=== PATIENT | male | born 1935 | race Caucasian/White ===

== ENCOUNTER 2017-06-01 12:07 | Outpatient (CLI) | payer MEDICARE, BC ==
[2017-06-01] VITALS (18 sets, daily range): BP systolic 110–136; BP diastolic 67–84
== END 2017-06-01 23:59 | disposition home or self-care (01) ==
LOC: CARD DIAG 12:07
PROVIDERS: ATTEND Physician Assistant
DX: R55 Syncope and collapse (principal)
CPT/HCPCS: 93660

== ENCOUNTER 2018-01-17 10:27 | Inpatient (IN) | payer MEDICARE, BC ==
[2018-01-12 12:06] LABS: BASOPHILS % (AUTO) 0.4 % (0-1); EOSINOPHILS # (AUTO) 0.1 X10'3 (0-0.9); EOSINOPHILS % (AUTO) 2.1 % (0-6); LYMPHOCYTES # (AUTO) 0.8 X10'3 (1.1-4.8); LYMPHOCYTES % (AUTO) 11.9 % (21-51); MEAN CORPUSCULAR HEMOGLOBIN 31.2 PG (27.0-31.0); MEAN CORPUSCULAR HGB CONC 33.4 % (33.0-36.5); MEAN CORPUSCULAR VOLUME 93.4 FL (78-98); MEAN PLATELET VOLUME 7.1 FL (7.4-10.4); MONOCYTES # (AUTO) 0.5 X10'3 (0-0.9); MONOCYTES % (AUTO) 8.1 % (2-12); NEUTROPHILS % (AUTO) 77.5 % (42-75); PRE OP HEMATOCRIT 43.8 % (42.0-52.0); PRE OP HEMOGLOBIN 14.6 g/dL (14.0-17.9); PRE OP PLATELET COUNT 271 X10'3 (140-440); RED BLOOD COUNT 4.69 X10'6 (4.70-6.10); RED CELL DISTRIBUTION WIDTH 13.2 % (11.5-14.5)
[2018-01-12 12:20] LABS: CLARITY,URINE CLEAR (Clear); COLOR,URINE YELLOW (Yellow); GLUCOSE, URINE NEGATIVE (Neg); KETONES,URINE TRACE mg/dl (Neg); LEUKOCYTE ESTERASE ,URINE NEGATIVE (Neg); NITRITES, URINE NEGATIVE (Neg); OCCULT BLOOD,URINE NEGATIVE (Neg); PH,URINE 5.5 (4.8-8.0); PROTEIN,URINE NEGATIVE (Neg)
[2018-01-12 12:22] LABS: UA COLLECTION TYPE VOIDED
[2018-01-12 12:23] LABS: PRE OP PROTIME 10.2 SECONDS (9.0-12.0)
[2018-01-12 12:30] LABS: ALBUMIN 3.9 G/DL (3.4-5.0); ALBUMIN/GLOBULIN RATIO 1.2 (1.1-1.5); ALKALINE PHOSPHATASE 68 IU/L (46-116); BLOOD UREA NITROGEN 19 MG/DL (7-18); BUN/CREATININE RATIO 14.5 (5.4-32.0); CALCIUM 9.2 MG/DL (8.5-10.1); CHLORIDE 101 MMOL/L (99-107); CREATININE 1.31 MG/DL (0.60-1.10); PRE OP ALT 33 U/L (30-65); PRE OP ANION GAP 7 (8-16); PRE OP AST 24 U/L (10-37); PRE OP GLUCOSE 85 MG/DL (70-104); PRE OP POTASSIUM 3.8 MMOL/L (3.4-5.1); PRE OP SODIUM 137 MMOL/L (135-145); TOTAL CARBON DIOXIDE 28.7 MMOL/L (24-32); TOTAL PROTEIN 7.1 G/DL (6.4-8.2); eGFR 53 ML/MIN
[2018-01-17] VITALS (18 sets, daily range): BP systolic 89–126; BP diastolic 37–73
[~2018-01-17] VITALS: Ht 170.2 cm; Wt 81.0 kg
[~2018-01-17 10:27] MED LIST: ATOR20TA66 PO; AZIL1TAB2 PO; LEVO100T PO; NAPR-56 PO; OMEP40CA37 PO; acetaminophen 325mg tablet PO ONE; cefazolin/dext.iso 2gm/50ml 50 ML IV ONE; famotidine 20mg tablet PO ONE; gabapentin 300mg capsule PO ONE; ringers solution, lacted 1,000 ML IV SCH; tranexamic acid inj. 1,500 MG in normal saline 100ml IV soln 85 ML IV ONE
[2018-01-17] MEDS ORDERED: bacitracin inj 150,000 UNIT in sodium chloride irrig. sol 3,000 ML IR ONE (11:00)
[2018-01-17] MEDS ORDERED: tetracaine 1% (10mg/ml) pres. free inj. ONE (11:04)
[2018-01-17] MEDS ORDERED: ROPIVAcaine 0.5% (5mg/ml) 30ml vial ONE ×2 (11:04→11:47)
[2018-01-17] MEDS ORDERED: fentaNYL/PF 50MCG/1 ML 2ML syringe ONE (11:59)
[2018-01-17] MEDS ORDERED: MIDAZolam 5mg/5ml vial ONE (12:00)
[2018-01-17] MEDS ORDERED: hydrALAZINE 20mg/ml inj. IV PRN (12:05)
[2018-01-17] MEDS ORDERED: ondansetron/PF 4mg/2ml inj IV PRN ×3 (12:05→14:50)
[2018-01-17] MEDS ORDERED: ringers solution, lacted 1,000 ML IV SCH (12:05)
[2018-01-17] MEDS ORDERED: fentaNYL/PF 50MCG/1 ML 2ML syringe IV PRN ×2 (12:05)
[2018-01-17] MEDS ORDERED: morphine 4 MG/ML inj SYRINge IV PRN ×2 (12:05)
[2018-01-17] MEDS ORDERED: labetalol 20mg/4ml (5mg/ml) syringe IV PRN (12:05)
[2018-01-17] MEDS ORDERED: diphenhydrAMINE 50 mg/ml inj IV PRN (12:10)
[2018-01-17] MEDS ORDERED: ePHEDrine 50MG/ML INJ. ONE (12:10)
[2018-01-17] MEDS ORDERED: vancomycin 1,000mg inj ONE (13:10)
[2018-01-17] MEDS ORDERED: metoclopramide 5 mg/ml inj ONE (13:10)
[2018-01-17] MEDS ORDERED: acetaminophen 325mg tablet PO PRN (14:50)
[2018-01-17] MEDS ORDERED: HYDROmorphone 1 mg/ml syringe IV PRN (14:50)
[2018-01-17] MEDS ORDERED: diphenhydrAMINE 25mg capsule PO PRN ×2 (14:50)
[2018-01-17] MEDS ORDERED: bisacodyl 10mg suppository rectal RC PRN (14:50)
[2018-01-17] MEDS ORDERED: magnesium hydroxide 30ml (MOM) UD suspension PO PRN (14:50)
[2018-01-17] MEDS: ceFAZolin 1GM/D5W- ADD-VANTAGE 50 ML IV SCH ×2 (16:35→23:54)
[2018-01-17] MEDS: potassium cl 20mEq in 1/2 NS 1,000 ML IV SCH (16:35)
[2018-01-17] MEDS ORDERED: vancomycin/NS 1 GM ADD-VANTAGE 250 ML IV SCH (20:00)
[2018-01-17] MEDS: lactobacillus rhamnosus 10,000 MMU CELLS/CAPSULE PO SCH (20:38)
[2018-01-17] MEDS: ascorbic acid 500mg tablet PO SCH (20:38)
[2018-01-17] MEDS: chlorthalidone 25mg tablet PO SCH (20:39)
[2018-01-17] MEDS: gabapentin 300mg capsule PO SCH (20:39)
[2018-01-17] MEDS ORDERED: AZILSARTAN MED PO SCH (21:00)
[2018-01-17] MEDS ORDERED: CHLORTHALIDONE PO SCH (21:00)
[2018-01-17] MEDS: sennosides 8.6mg tablet PO SCH (21:00)
[2018-01-17] MEDS: losartan 50mg tablet PO SCH (22:30)
[2018-01-18] MEDS: potassium cl 20mEq in 1/2 NS 1,000 ML IV SCH ×4 (00:10→22:47)
[2018-01-18 02:00] VITALS: BP 126/61
[2018-01-18] MEDS: oxyCODONE/APAP 5-325mg tablet PO PRN (04:55)
[2018-01-18 06:23] LABS: BASOPHILS % (AUTO) 0.1 % (0-1); EOSINOPHILS # (AUTO) 0.1 X10'3 (0-0.9); EOSINOPHILS % (AUTO) 1.4 % (0-6); HEMATOCRIT 38.4 % (42.0-52.0); HEMOGLOBIN 12.8 g/dl (14.0-17.9); LYMPHOCYTES # (AUTO) 0.4 X10'3 (1.1-4.8); LYMPHOCYTES % (AUTO) 4.2 % (21-51); MEAN CORPUSCULAR HEMOGLOBIN 31.2 PG (27.0-31.0); MEAN CORPUSCULAR HGB CONC 33.4 % (33.0-36.5); MEAN CORPUSCULAR VOLUME 93.4 FL (78-98); MEAN PLATELET VOLUME 7.3 FL (7.4-10.4); MONOCYTES # (AUTO) 0.6 X10'3 (0-0.9); MONOCYTES % (AUTO) 6.3 % (2-12); NEUTROPHILS # (AUTO) 8.5 X10'3 (1.8-7.7); PLATELET COUNT 238 X10'3 (140-440); RED BLOOD COUNT 4.11 X10'6 (4.70-6.10); RED CELL DISTRIBUTION WIDTH 13.2 % (11.5-14.5); WHITE BLOOD COUNT 9.6 X10'3 (4.5-11.0)
[2018-01-18 06:31] VITALS: BP 135/78
[2018-01-18 06:34] LABS: INR 1.3 INR; PROTHROMBIN TIME 13.1 SECONDS (9.0-12.0)
[2018-01-18 06:42] LABS: ALANINE AMINOTRANSFERASE 25 U/L (12-78); ALBUMIN/GLOBULIN RATIO 0.9 (1.1-1.5); ALKALINE PHOSPHATASE 54 IU/L (46-116); ANION GAP 8 (8-16); ASPARTATE AMINO TRANSFERASE 17 U/L (10-37); BILIRUBIN,TOTAL 0.5 MG/DL (0.1-1.0); BLOOD UREA NITROGEN 17 MG/DL (7-18); BUN/CREATININE RATIO 12.6 (5.4-32.0); CALCIUM 8.5 MG/DL (8.5-10.1); CHLORIDE 99 MMOL/L (99-107); CREATININE 1.35 MG/DL (0.60-1.10); GLUCOSE 134 MG/DL (70-104); POTASSIUM 4.6 MMOL/L (3.5-5.1); SODIUM 134 MMOL/L (135-145); TOTAL CARBON DIOXIDE 26.9 MMOL/L (24-32); TOTAL PROTEIN 6.2 G/DL (6.4-8.2); eGFR 51 ML/MIN
[2018-01-18 06:57] VITALS: BP 120/64
[2018-01-18] MEDS: lactobacillus rhamnosus 10,000 MMU CELLS/CAPSULE PO SCH ×2 (07:38→20:15)
[2018-01-18] MEDS: gabapentin 300mg capsule PO SCH ×3 (07:39→20:17)
[2018-01-18] MEDS: levoTHYROXINE 100mcg tablet PO SCH (07:41)
[2018-01-18] MEDS: multivitamins, therapeutics tablet PO SCH (07:41)
[2018-01-18] MEDS: atorvastatin 20mg tablet PO SCH (07:42)
[2018-01-18] MEDS: ascorbic acid 500mg tablet PO SCH ×2 (07:43→20:16)
[2018-01-18] MEDS ORDERED: warfarin 5mg tablet PO ONE (10:00)
[2018-01-18] MEDS: lactose-reduced food (Ensure High Protein) 237ml bottle PO SCH ×2 (13:00→18:00)
[2018-01-18 14:13] VITALS: BP 105/48
[2018-01-18 18:00] VITALS: BP 129/60
[2018-01-18] MEDS: chlorthalidone 25mg tablet PO SCH (20:16)
[2018-01-18] MEDS: losartan 50mg tablet PO SCH (20:16)
[2018-01-18] MEDS: sennosides 8.6mg tablet PO SCH (20:17)
[2018-01-18 22:00] VITALS: BP 112/47
[2018-01-19 02:00] VITALS: BP 113/49
[2018-01-19] MEDS: oxyCODONE/APAP 5-325mg tablet PO PRN ×4 (04:41→20:37)
[2018-01-19 06:01] LABS: BASOPHILS % (AUTO) 0.3 % (0-1); EOSINOPHILS # (AUTO) 0.2 X10'3 (0-0.9); HEMATOCRIT 31.9 % (42.0-52.0); HEMOGLOBIN 10.9 g/dl (14.0-17.9); LYMPHOCYTES # (AUTO) 0.6 X10'3 (1.1-4.8); LYMPHOCYTES % (AUTO) 8.4 % (21-51); MEAN CORPUSCULAR HEMOGLOBIN 31.5 PG (27.0-31.0); MEAN CORPUSCULAR HGB CONC 34.4 % (33.0-36.5); MEAN CORPUSCULAR VOLUME 91.6 FL (78-98); MEAN PLATELET VOLUME 7.3 FL (7.4-10.4); MONOCYTES # (AUTO) 0.9 X10'3 (0-0.9); MONOCYTES % (AUTO) 12.3 % (2-12); NEUTROPHILS # (AUTO) 5.8 X10'3 (1.8-7.7); PLATELET COUNT 201 X10'3 (140-440); RED BLOOD COUNT 3.48 X10'6 (4.70-6.10); RED CELL DISTRIBUTION WIDTH 12.8 % (11.5-14.5); WHITE BLOOD COUNT 7.5 X10'3 (4.5-11.0)
[2018-01-19 06:16] LABS: INR 1.8 INR; PROTHROMBIN TIME 18.1 SECONDS (9.0-12.0)
[2018-01-19 06:27] LABS: ALANINE AMINOTRANSFERASE 17 U/L (12-78); ALBUMIN 2.7 G/DL (3.4-5.0); ALKALINE PHOSPHATASE 43 IU/L (46-116); ANION GAP 9 (8-16); ASPARTATE AMINO TRANSFERASE 28 U/L (10-37); BLOOD UREA NITROGEN 18 MG/DL (7-18); BUN/CREATININE RATIO 13.7 (5.4-32.0); CALCIUM 8.2 MG/DL (8.5-10.1); CHLORIDE 96 MMOL/L (99-107); CREATININE 1.31 MG/DL (0.60-1.10); GLUCOSE 112 MG/DL (70-104); POTASSIUM 4.3 MMOL/L (3.5-5.1); SODIUM 130 MMOL/L (135-145); TOTAL PROTEIN 5.5 G/DL (6.4-8.2); eGFR 53 ML/MIN
[2018-01-19] MEDS: potassium cl 20mEq in 1/2 NS 1,000 ML IV SCH (06:47)
[2018-01-19 07:24] VITALS: BP 111/60
[2018-01-19] MEDS: lactose-reduced food (Ensure High Protein) 237ml bottle PO SCH ×3 (08:00→19:16)
[2018-01-19] MEDS: levoTHYROXINE 100mcg tablet PO SCH (08:38)
[2018-01-19] MEDS: atorvastatin 20mg tablet PO SCH (08:38)
[2018-01-19] MEDS: lactobacillus rhamnosus 10,000 MMU CELLS/CAPSULE PO SCH ×2 (08:38→20:36)
[2018-01-19] MEDS: multivitamins, therapeutics tablet PO SCH (08:38)
[2018-01-19] MEDS: gabapentin 300mg capsule PO SCH ×3 (08:38→20:36)
[2018-01-19] MEDS: ascorbic acid 500mg tablet PO SCH ×2 (08:38→20:36)
[2018-01-19] MEDS ORDERED: warfarin 3mg tablet PO ONE (10:00)
[2018-01-19 12:41] VITALS: BP 100/61
[2018-01-19] MEDS ORDERED: acetaminophen 325mg tablet PO PRN (14:50)
[2018-01-19 18:00] VITALS: BP 108/56
[2018-01-19] MEDS: sennosides 8.6mg tablet PO SCH (20:36)
[2018-01-19] MEDS: losartan 50mg tablet PO SCH (20:36)
[2018-01-19] MEDS: chlorthalidone 25mg tablet PO SCH (20:36)
[2018-01-19 22:00] VITALS: BP 104/51
[2018-01-20] MEDS: oxyCODONE/APAP 5-325mg tablet PO PRN ×2 (05:49→10:30)
[2018-01-20 06:44] VITALS: BP 120/50
[2018-01-20 06:53] LABS: INR 1.8 INR; PROTHROMBIN TIME 17.7 SECONDS (9.0-12.0)
[2018-01-20 06:54] LABS: ALANINE AMINOTRANSFERASE 21 U/L (12-78); ALBUMIN 2.7 G/DL (3.4-5.0); ALBUMIN/GLOBULIN RATIO 0.8 (1.1-1.5); ALKALINE PHOSPHATASE 45 IU/L (46-116); ANION GAP 6 (8-16); ASPARTATE AMINO TRANSFERASE 33 U/L (10-37); BILIRUBIN,TOTAL 1.2 MG/DL (0.1-1.0); BLOOD UREA NITROGEN 21 MG/DL (7-18); BUN/CREATININE RATIO 14.5 (5.4-32.0); CALCIUM 9.1 MG/DL (8.5-10.1); CHLORIDE 97 MMOL/L (99-107); CREATININE 1.45 MG/DL (0.60-1.10); GLUCOSE 106 MG/DL (70-104); POTASSIUM 4.6 MMOL/L (3.5-5.1); SODIUM 131 MMOL/L (135-145); TOTAL CARBON DIOXIDE 27.8 MMOL/L (24-32); TOTAL PROTEIN 6.2 G/DL (6.4-8.2); eGFR 47 ML/MIN
[2018-01-20 07:02] LABS: BASOPHILS % (AUTO) 0.3 % (0-1); EOSINOPHILS # (AUTO) 0.4 X10'3 (0-0.9); EOSINOPHILS % (AUTO) 4.5 % (0-6); HEMATOCRIT 35.7 % (42.0-52.0); HEMOGLOBIN 12.2 g/dl (14.0-17.9); LYMPHOCYTES # (AUTO) 0.9 X10'3 (1.1-4.8); LYMPHOCYTES % (AUTO) 11.5 % (21-51); MEAN CORPUSCULAR HEMOGLOBIN 31.5 PG (27.0-31.0); MEAN CORPUSCULAR HGB CONC 34.1 % (33.0-36.5); MEAN CORPUSCULAR VOLUME 92.4 FL (78-98); MEAN PLATELET VOLUME 7.6 FL (7.4-10.4); MONOCYTES % (AUTO) 11.6 % (2-12); NEUTROPHILS # (AUTO) 5.9 X10'3 (1.8-7.7); NEUTROPHILS % (AUTO) 72.1 % (42-75); PLATELET COUNT 244 X10'3 (140-440); RED BLOOD COUNT 3.86 X10'6 (4.70-6.10); WHITE BLOOD COUNT 8.2 X10'3 (4.5-11.0)
[2018-01-20] MEDS: lactose-reduced food (Ensure High Protein) 237ml bottle PO SCH (08:00)
[2018-01-20] MEDS: gabapentin 300mg capsule PO SCH (09:02)
[2018-01-20] MEDS: levoTHYROXINE 100mcg tablet PO SCH (09:02)
[2018-01-20] MEDS: lactobacillus rhamnosus 10,000 MMU CELLS/CAPSULE PO SCH (09:02)
[2018-01-20] MEDS: multivitamins, therapeutics tablet PO SCH (09:02)
[2018-01-20] MEDS: atorvastatin 20mg tablet PO SCH (09:02)
[2018-01-20] MEDS: ascorbic acid 500mg tablet PO SCH (09:02)
[2018-01-20 10:00] VITALS: BP 110/51
[2018-01-20] MEDS ORDERED: warfarin 3mg tablet PO ONE (10:00)
== END 2018-01-20 13:24 | DRG 470 ==
LOC: PAS IN 10:40 → EDSTATUS 13:00 → ORTHO 4S 16:10
PROVIDERS: ADMIT Specialist; ATTEND Specialist
PROC: 3E0T3BZ Introduction of Anesthetic Agent into Peripheral Nerves and Plexi, Percutaneous Approach (ICD-10-PCS; 2018-01-17)
PROC: 0T9B70Z Drainage of Bladder with Drainage Device, Via Natural or Artificial Opening (ICD-10-PCS; 2018-01-17)
PROC: 0SRD0J9 Replacement of Left Knee Joint with Synthetic Substitute, Cemented, Open Approach (ICD-10-PCS; principal; 2018-01-17 12:10)
DX: M17.12 Unilateral primary osteoarthritis, left knee (principal); D62 Acute posthemorrhagic anemia; N39.3 Stress incontinence (female) (male); I10 Essential (primary) hypertension; E03.9 Hypothyroidism, unspecified; E78.5 Hyperlipidemia, unspecified; M21.162 Varus deformity, not elsewhere classified, left knee; R33.9 Retention of urine, unspecified; F17.290 Nicotine dependence, other tobacco product, uncomplicated; Z72.89 Other problems related to lifestyle; Z79.899 Other long term (current) drug therapy; Z85.46 Personal history of malignant neoplasm of prostate
CPT/HCPCS: 36415; 73560; 80053; 81003; 84153; 84443; 85025; 85610; 85730; 87070; 97110; 97116; 97162; 97530; A4344; A6449; A6455; A7000; C1713; C1758; C1776; G0378; J0690; J2250; J2765; J2795; J3010; J3370; J7030; J7120; Q0163